=== PATIENT | female | born 1960 | race Caucasian/White ===

== ENCOUNTER 2021-05-20 11:30 | Outpatient (CLI) | payer SELFPAY | END 2021-05-20 23:59 | disposition home or self-care (01) | LOC: WOU 11:30 | PROVIDERS: ATTEND Specialist | DX: Z01.818 Encounter for other preprocedural examination (principal); T86.828 Other complications of skin graft (allograft) (autograft); C50.812 Malignant neoplasm of overlapping sites of left female breast; J45.20 Mild intermittent asthma, uncomplicated; I10 Essential (primary) hypertension; Z91.040 Latex allergy status; Z79.899 Other long term (current) drug therapy | CPT/HCPCS: G0463 ==